=== PATIENT | male | born 1970 | race Caucasian/White ===

== ENCOUNTER 2020-08-16 11:38 | Emergency (ER) | payer OTHER, SELFPAY ==
[2020-08-16 11:41] VITALS: BP 102/57; PULSE 68; RESP 16; TEMP 36.6; O2SAT 96; BMI 33.9
--- NOTE | 2020-08-16 12:05 | ED_ITS ---
HPI - Wound/Laceration General Chief Complaint: Wound/Laceration Stated Complaint: l hand laceration Time Seen by Provider: 08/16/20 12:04 Source: patient Mode of arrival: ambulatory Limitations: no limitations History of Present Illness HPI narrative: 49-year-old male with no significant past medical history presents with left hand laceration, he cut himself with a hunting knife this morning while trying to cut a rope. Onset (ago): minute(s) Related Data Previous Rx's Medication Instructions Recorded cephalexin [Keflex] 500 mg PO BID #14 cap 08/16/20 Allergies Allergy/AdvReac Type Severity Reaction Status Date / Time bacitracin Allergy Mild unknown Verified 08/16/20 12:12 Review of Systems Review of Systems: Yes all other systems are reviewed and are negative PENDING SALE TO [facility] Past Medical History Attestation statement: The following information was validated with the patient. Medical History Hernia Meniscal injury Social History Social History Advance Directives: No Advance Directives Information Provided: No Physical Exam Vital Signs: Vital Signs: Vital Signs Temp Pulse Resp BP Pulse Ox 08/16/20 11:41 97.8 F 68 16 102/57 L 96 Body Mass Index 33.9 Const: General: cooperative, healthy appearing, comfortable and no acute distress HENMT: Head: Yes normal to inspection Neck: Neck: Yes normal visual inspection and Yes supple Resp: Effort & Inspection: normal respiratory effort and able to speak in complete sentences Skin: Wounds: wounds noted (3 cm laceration, linear, over left MCP 3rd digit, clean) 3rd finger open and sutures; no drainage and odorous Course Course Course Narrative: 49-year-old male with left 3rd digit extensor tendon laceration over MCP approximately 3 cm, will suture as below. Spoke with Dr Mathew, hand surgeon at [facility], she advised prophylactic antibiotics, suture, finger splint and follow up with a hand surgeon this week. Does not need immediate repair. Procedures Laceration Laceration 1: Site: hand Side (If applicable): left Size (cm): 3.0 Description: linear Depth: involves tendon Local Anesthetic: lidocaine 2% Amount of anesthesia used (mL): 3 Pre-repair: wound explored and irrigated extensively Skin layer closed with: vicryl Size (cm): 4-0 Number of sutures: 3 Technique: simple, interrupted Discharge Plan Discharge Clinical Impression: Laceration Patient Disposition: Home, Self-Care Instructions: Laceration (ED) Additional Instructions: As discussed, please be sure to follow-up with a hand surgeon tomorrow because the tendon will need a repair. It is very important for you to follow-up with a healthcare provider. Prescriptions: New cephalexin [Keflex] 500 mg capsule 500 mg PO BID Qty: 14 RF: 0
[2020-08-16] MEDS: Lidocaine HCl 2 % MPF 5 ML VIAL SUBCUT (12:39)
== END 2020-08-16 12:48 | disposition home or self-care (01) ==
PROVIDERS: Emergency Provider Emergency Medicine
DX: S66.323A Laceration of extensor muscle, fascia and tendon of left middle finger at wrist and hand level, initial encounter (principal); W26.0XXA Contact with knife, initial encounter; Y93.89 Activity, other specified; Y92.019 Unspecified place in single-family (private) house as the place of occurrence of the external cause; Y99.9 Unspecified external cause status
CPT/HCPCS: 12042; 99283; 99284